=== PATIENT | male | born 1925 | race Caucasian/White ===

== ENCOUNTER → 2016-09-30 | Outpatient (CLI) | payer MEDICARE ==
[~2016-09-30] MED LIST: APIX2.5T PO; ASP81TEC PO; CARB1TAB6 PO; CEFU500T34 PO
--- NOTE | 2016-09-30 19:07 | Diagnostic Imaging Report ---
Three views of the thoracic spine. INDICATION: Chronic back pain. FINDINGS: The alignment of the thoracic spine is satisfactory. The vertebral body heights are preserved. Disc evaluation demonstrates multilevel mild anterior osteophytes and sclerotic changes. The paraspinal soft tissues appear grossly unremarkable with the pacemaker with two leads seen. IMPRESSION: Mild degenerative changes. Dictated by: Dictated on workstation # [id number]
--- NOTE | 2016-09-30 19:07 | Diagnostic Imaging Report ---
Exam: 3 views of the lumbar spine. Indication: Chronic pain. Findings: There is grade 1 spondylolisthesis of L5 over S1, similar to the November 2014 exam. The vertebral body heights appear preserved. There is significant disc height loss at L4/5 and L5/S1 discs with vacuum phenomenon and there are multilevel anterior osteophytes in the lumbar spine. No significant posterior osteophytes are evident. There is minimal right convexity curvature which could be positional or related to scoliosis. The SI joints appear unremarkable. Atherosclerotic calcifications of the abdominal aorta are seen. Impression: Grade 1 spondylolisthesis of L5 over S1. Prominent degenerative disc changes in the lower lumbar spine. Dictated by: Dictated on workstation # [id number]
== END ==
LOC: RAD 14:38
PROVIDERS: ATTEND Family Medicine
DX: M54.5 Low back pain (principal); M54.6 Pain in thoracic spine
CPT/HCPCS: 72072; 72100

== ENCOUNTER 2017-04-18 14:09 | Observation (INO) | payer MEDICARE ==
[~2017-04-18] VITALS: Ht 182.9 cm; Wt 81.6 kg
[2017-04-18] MEDS ORDERED: NS IV 500 ML 500 ML ONE (14:32)
[2017-04-18] MEDS ORDERED: NS IV 500 ML 500 ML IV ONE (14:36)
--- NOTE | 2017-04-18 14:36 | ED Neurological Problem ---
General Stated Complaint: L SIDE WEAKNESS Source: patient, family (daughter), EMS, spouse Exam Limitations: no limitations History of Present Illness Time seen by provider: 14:30 Initial Comments Patient present to ER by EMS after the last 3-4 weeks she's had progressively increasing decline in his ability to stand and walk. He has a history of parkinsonism as well as urinary hesitancy. He is not having any fevers chills or malaise. His weakness is in both legs and is having difficulty with help standing up to get on the commode so is been using a urinal. He says he has a difficult time initiating urinary stream and has to go to the bathroom about once an hour. He is seen by Dr. Infante. He has no rash fevers or chills or malaise. He called his doctor and was told to come to the ER for immediate evaluation. He had a bowel movement this morning and is typically constipated. Allergies and Home Medications Allergies Coded Allergies: No Known Drug Allergies (Verified , 10/22/09) Home Medications Apixaban 2.5 Mg Tablet, 2.5 MG PO BID, #60 Prescribed by: IGGY VALLEJO on 11/03/13 0917 Carbidopa/Levodopa 1 Each Tablet.er, 1 TAB PO QID, #360 (Reported) Finasteride 5 Mg Tablet, 5 MG PO DAILY, #90 (Reported) Rivastigmine 1 Each Patch.td24, 9.5 TD DAILY, #30 (Reported) Tamsulosin HCl 0.4 Mg Cap.er.24h, 0.4 MG PO DAILY, #90 (Reported) Trospium Chloride 20 Mg Tablet, 20 MG PO BID, #120 (Reported) [ergocalciferol] , 1 TAB PO WEEK, (Reported) Constitutional: see HPI, No chills, No diaphoresis, No fever, malaise, weakness Eyes: Denies Blindness, Denies Decreased Acuity Ears, Nose, Mouth, Throat: denies ear pain, denies nose discharge Respiratory: cough, No short of breath, No wheezing Cardiovascular: No chest pain, No palpitations, No syncope Gastrointestinal: No abdominal pain, No constipation, No diarrhea, No loss of appetite, No nausea Genitourinary: No discharge, No dysuria, frequency, hesitancy Musculoskeletal: No back pain, No joint pain Skin: No pruritus, No rash Psychiatric/Neurological: Denies Cognitive Dysfunction, Denies Headache, Denies Numbness Past Mfgyhds-Lgsrrs-Kzaoxd Hx Immunizations Up To Date Date of Pneumonia Vaccine: May 27, 2012 Date of Influenza Vaccine: Jun 30, 2013 Surgeries HX Surgeries: Yes Surgeries: Appendectomy, Eye Surgery, Pacemaker Respiratory Hx Respiratory Disorders: No Cardiovascular Hx Cardiac Disorders: Yes (Pacemaker) Cardiac Disorders: Syncope Neurological Hx Neurological Disorders: Yes (SYNCOPE) Neurological Disorders: Parkinson's Disease Reproductive System Hx Reproductive Disorders: No Genitourinary Hx Genitourinary Disorders: No Gastrointestinal Hx Gastrointestinal Disorders: No Musculoskeletal Hx Musculoskeletal Disorders: No Endocrine Hx Endocrine Disorders: No HEENT HX ENT Disorders: No Cancer Hx Cancer: No Psychosocial Hx Psychiatric Problems: No Blood Transfusions Hx Blood Disorders: No Family Medical History Significant Family History: Heart Disease, Hypertension Family Medial History: Cancer AUNT (MATERNAL) AUNT (MATERNAL) GRANDMOTHER (PATERNAL) Family history: Arthritis 03 FATHER 03 MOTHER Family history: Breast disease AUNT (MATERNAL) AUNT (MATERNAL) Family history: Cardiovascular disease GRANDFATHER (MATERNAL) Family history: Diabetes mellitus 03 MOTHER Family history: Hypertension GRANDFATHER (MATERNAL) Hearing loss 03 FATHER 03 MOTHER Heart disease GRANDFATHER (MATERNAL) Stroke GRANDMOTHER (MATERNAL) Physical Exam Vital Signs Capillary Refill : General Appearance: WD/WN, no apparent distress HEENT: PERRL/EOMI, normal ENT inspection, TMs normal, pharynx normal Neck: non-tender, normal inspection Respiratory: chest non-tender, lungs clear Cardiovascular: normal peripheral pulses, regular rate, rhythm Peripheral Pulses: 1+ Dorsalis Pedis (R) (dopplerable), 1+ Left Dors-Pedis (L) (dopplerable), 3+ Radial Pulses (R), 3+ Radial Pulses (L) Gastrointestinal: normal bowel sounds, non tender, soft Back: normal inspection, no CVA tenderness Extremities: no pedal edema, normal capillary refill, other (mild bluish discoloration to the piper on the right side) Neurologic/Psychiatric: cashier host/hostess II-XII nml as tested, no motor/sensory deficits, alert, normal mood/affect, oriented x 3 Motor/Sensory: weak motor strength RLE, weak motor strength LLE Skin: normal color, warm/dry Progress/Results/Core Measures Results/Orders Lab Results Laboratory Tests Test 04/18/17 14:32 04/18/17 15:45 Range/Units White Blood Count 7.0 4.3-11.0 10^3/uL Red Blood Count 3.92 L 4.35-5.85 10^6/uL Hemoglobin 12.3 L 13.3-17.7 G/DL Hematocrit 37 L 40-54 % Mean Corpuscular Volume 95 80-99 FL Mean Corpuscular Hemoglobin 31 25-34 PG Mean Corpuscular Hemoglobin Concent 33 32-36 G/DL Red Cell Distribution Width 13.1 10.0-14.5 % Platelet Count 179 130-400 10^3/uL Mean Platelet Volume 9.2 7.4-10.4 FL Neutrophils (%) (Auto) 65 42-75 % Lymphocytes (%) (Auto) 19 12-44 % Monocytes (%) (Auto) 12 0-12 % Eosinophils (%) (Auto) 4 0-10 % Basophils (%) (Auto) 0 0-10 % Neutrophils # (Auto) 4.5 1.8-7.8 X 10^3 Lymphocytes # (Auto) 1.4 1.0-4.0 X 10^3 Monocytes # (Auto) 0.8 0.0-1.0 X 10^3 Eosinophils # (Auto) 0.3 0.0-0.3 10^3/uL Basophils # (Auto) 0.0 0.0-0.1 10^3/uL Sodium Level 138 135-145 MMOL/L Potassium Level 4.6 3.6-5.0 MMOL/L Chloride Level 103 98-107 MMOL/L Carbon Dioxide Level 30 21-32 MMOL/L Anion Gap 5 5-14 MMOL/L Blood Urea Nitrogen 24 H 7-18 MG/DL Creatinine 1.63 H 0.60-1.30 MG/DL Estimat Glomerular Filtration Rate 40 BUN/Creatinine Ratio 15 Glucose Level 110 H 70-105 MG/DL Calcium Level 9.0 8.5-10.1 MG/DL Magnesium Level 2.2 1.8-2.4 MG/DL Total Bilirubin 0.4 0.1-1.0 MG/DL Aspartate Amino Transf (AST/SGOT) 15 5-34 U/L Alanine Aminotransferase (ALT/SGPT) < 6 0-55 U/L Alkaline Phosphatase 77 40-136 U/L Troponin I < 0.30 <0.30 NG/ML C-Reactive Protein High Sensitivity 0.05 0.00-0.50 MG/DL Total Protein 7.1 6.4-8.2 GM/DL Albumin 3.9 3.2-4.5 GM/DL Thyroid Stimulating Hormone (TSH) 1.32 0.35-4.94 UIU/ML Urine Color YELLOW Urine Clarity CLEAR Urine pH 7 5-9 Urine Specific Vale 1.010 L 1.016-1.022 Urine Protein NEGATIVE NEGATIVE Urine Glucose (UA) NEGATIVE NEGATIVE Urine Ketones NEGATIVE NEGATIVE Urine Nitrite NEGATIVE NEGATIVE Urine Bilirubin NEGATIVE NEGATIVE Urine Urobilinogen NORMAL NORMAL MG/DL Urine Leukocyte Esterase NEGATIVE NEGATIVE Urine RBC (Auto) NEGATIVE NEGATIVE Urine RBC RARE /HPF Urine WBC RARE /HPF Urine Crystals NONE /LPF Urine Bacteria NEGATIVE /HPF Urine Casts NONE /LPF Urine Mucus NEGATIVE /LPF Urine Culture Indicated NO My Orders Orders - KIM MCKENZIE Ct Head Wo (04/18/17 14:36) Saline Lock/Iv-Start (04/18/17 14:36) Cbc With Automated Diff (04/18/17 14:36) Comprehensive Metabolic Panel (04/18/17 14:36) Hs C Reactive Protein (04/18/17 14:36) Magnesium (04/18/17 14:36) Thyroid Stimulating Hormone (04/18/17 14:36) Troponin I (04/18/17 14:36) Ua Culture If Indicated (04/18/17 14:36) Chest 1 View, Ap/Pa Only (04/18/17 14:36) Ns Iv 500 Ml (Sodium Chloride 0.9%) (04/18/17 14:36) Ns Iv 500 Ml (Sodium Chloride 0.9%) (04/18/17 14:32) Medications Given in ED Current Medications Medications Dose Ordered Sig/Antonio Route Start Time Stop Time Status Last Admin Dose Admin Sodium Chloride 500 ml @ 0 mls/hr Q0M ONCE IV 04/18/17 14:36 04/18/17 14:39 DC 04/18/17 14:46 500 MLS/HR Progress Note : Time: 15:58 Progress Note Progressive worsening symmetric bilateral lower extremity weakness. Patient no longer able to walk or stand on his own. We'll look for infectious reason TSH and get a CT scan of the head thing about normal pressure hydrocephalus or other problems. Nothing to explain it on the lab, chest x-ray or CT at this time. We'll place a Rivas catheter to get urine since he is unable to produce on his own. Diagnostic Imaging Diagonstic Imaging: Xray Plain Films/CT/US/NM/MRI: chest Comments VIA [facility]. [place], [place] NAME: MATILDA MCRAE [facility] REC#: [id number] PT STATUS: REG ER : 1925 PHYSICIAN: KIM MCKENZIE MD ADMIT DATE: 04/18/17/ER Draft Date of Exam:04/18/17 CHEST 1 VIEW, AP/PA ONLY INDICATION: Left-sided weakness. COMPARISON: 11/02/2013. FINDINGS: Portable chest shows lungs to be free of infiltrate. Heart is not enlarged. Pacemaker is present unchanged with generator over the left chest. There is no evidence of pulmonary edema. No pneumothorax or pleural effusion. IMPRESSION: Stable portable chest with pacemaker present. Dictated on workstation # [id number] Dict: 04/18/17 1517 Trans: 04/18/17 1525 [facility] [id number] Interpreted by: PRISCILLA SANTIZO MD Electronically signed by: Reviewed: Reviewed by Me Diagonstic Imaging: CT Plain Films/CT/US/NM/MRI: head Comments [facility] [employer] [facility]. [place], [place] NAME: MATILDA MCRAE [facility] REC#: [id number] PT STATUS: REG ER : 1925 PHYSICIAN: KIM MCKENZIE MD ADMIT DATE: 04/18/17/ER Draft Date of Exam:04/18/17 CT HEAD WO PROCEDURE: CT head without contrast. TECHNIQUE: Multiple contiguous axial images were obtained through the brain without the use of intravenous contrast. INDICATION: Left-sided weakness. Comparison with 03/20/2015. FINDINGS: There is diffuse cortical atrophy. The ventricles are slightly prominent likely secondary to atrophic changes. Periventricular white matter disease present bilaterally in a symmetrical fashion. No evidence of intracranial hemorrhage. No focal edema or mass effect. No extra-axial fluid collections. The basal ganglia appear normal. Basal cisterns are clear. CP angles are clear. Orbital contents are symmetrical. IMPRESSION: 1. Progressive atrophy and white matter changes likely consistent with chronic small vessel disease which has progressed since previous exam. No acute abnormalities demonstrated. Dictated on workstation # [id number] Dict: 04/18/17 1518 Trans: 04/18/17 1523 [facility] [id number] Interpreted by: PRISCILLA SANTIZO MD Electronically signed by: Reviewed: Reviewed by Me Departure Communication Time/Spoke to Admitting Phy: 16:[address] Uriah Kinney discussed the case and have the patient has had difficulty dissipating and home health PT as well as inpatient PT in the past. Feels it be best to put the patient on observation for his decline he'll do some further workup we reviewed the labs and imaging. Dr. Kinney will see the patient tomorrow morning. Okay to initiate a rehabilitation evaluation. Impression Impression: Primary Impression: Weakness Additional Impressions: Debility Parkinsons Disposition: ADMITTED INPATIENT (obs) Condition: Stable Decision to Admit Reason: Admit from ER (General) Decision to Admit/Date: Apr 18, 2017 Time/Decision to Admit Time: 16:45 Departure-Patient Inst. Referrals: VINCENT WHITE DO (PCP/Family) Primary Care Physician Copy Copies To 1: VINCNET WHITE TITUS J Apr 18, 2017 14:36
[2017-04-18 14:44] LABS: BASOPHILS % (AUTO) 0 % (0-10); EOSINOPHILS # (AUTO) 0.3 10^3/uL (0.0-0.3); EOSINOPHILS % (AUTO) 4 % (0-10); LYMPHOCYTES # (AUTO) 1.4 X 10^3 (1.0-4.0); LYMPHOCYTES % (AUTO) 19 % (12-44); MEAN CORPUSCULAR HEMOGLOBIN 31 PG (25-34); MEAN CORPUSCULAR HGB CONC 33 G/DL (32-36); MEAN CORPUSCULAR VOLUME 95 FL (80-99); MEAN PLATELET VOLUME 9.2 FL (7.4-10.4); MONOCYTES # (AUTO) 0.8 X 10^3 (0.0-1.0); MONOCYTES % (AUTO) 12 % (0-12); NEUTROPHILS # (AUTO) 4.5 X 10^3 (1.8-7.8); NEUTROPHILS % (AUTO) 65 % (42-75); PLATELET COUNT 179 10^3/uL (130-400); RED BLOOD COUNT 3.92 10^6/uL (4.35-5.85); RED CELL DISTRIBUTION WIDTH 13.1 % (10.0-14.5)
[2017-04-18 15:03] LABS: ALANINE AMINOTRANSFERASE < 6 U/L (0-55); ALBUMIN 3.9 GM/DL (3.2-4.5); ANION GAP 5 MMOL/L (5-14); ASPARTATE AMINO TRANSFERASE 15 U/L (5-34); BILIRUBIN,TOTAL 0.4 MG/DL (0.1-1.0); BLOOD UREA NITROGEN 24 MG/DL (7-18); BUN/CREATININE RATIO 15; CARBON DIOXIDE 30 MMOL/L (21-32); CHLORIDE 103 MMOL/L (98-107); CREATININE SERUM 1.63 MG/DL (0.60-1.30); GFR ESTIMATED 40; GLUCOSE 110 MG/DL (70-105); MAGNESIUM 2.2 MG/DL (1.8-2.4); POTASSIUM 4.6 MMOL/L (3.6-5.0); SODIUM 138 MMOL/L (135-145); TOTAL PROTEIN 7.1 GM/DL (6.4-8.2); hs C REACTIVE PROTEIN 0.05 MG/DL (0.00-0.50)
[2017-04-18] MEDS ORDERED: CARB1TAB41 PO ×2 (15:06)
[2017-04-18] MEDS ORDERED: RIVA1PAT12 TD ×2 (15:06)
[2017-04-18] MEDS ORDERED: ergocalciferol PO (15:06)
[2017-04-18] MEDS ORDERED: TROS20TA3 PO ×2 (15:06)
[2017-04-18] MEDS ORDERED: TAMS0.4C2 PO ×2 (15:06)
[2017-04-18] MEDS ORDERED: FINA5TAB6 PO ×2 (15:06)
[2017-04-18 15:23] LABS: THYROID STIMULATING HORMONE 1.32 UIU/ML (0.35-4.94); TROPONIN I < 0.30 NG/ML (<0.30)
--- NOTE | 2017-04-18 15:23 | Diagnostic Imaging Report ---
PROCEDURE: CT head without contrast. TECHNIQUE: Multiple contiguous axial images were obtained through the brain without the use of intravenous contrast. INDICATION: Left-sided weakness. Comparison with 03/20/2015. FINDINGS: There is diffuse cortical atrophy. The ventricles are slightly prominent likely secondary to atrophic changes. Periventricular white matter disease present bilaterally in a symmetrical fashion. No evidence of intracranial hemorrhage. No focal edema or mass effect. No extra-axial fluid collections. The basal ganglia appear normal. Basal cisterns are clear. CP angles are clear. Orbital contents are symmetrical. IMPRESSION: 1. Progressive atrophy and white matter changes likely consistent with chronic small vessel disease which has progressed since previous exam. No acute abnormalities demonstrated. Dictated by: Dictated on workstation # [id number]
--- NOTE | 2017-04-18 15:25 | Diagnostic Imaging Report ---
INDICATION: Left-sided weakness. COMPARISON: 11/02/2013. FINDINGS: Portable chest shows lungs to be free of infiltrate. Heart is not enlarged. Pacemaker is present unchanged with generator over the left chest. There is no evidence of pulmonary edema. No pneumothorax or pleural effusion. IMPRESSION: Stable portable chest with pacemaker present. Dictated by: Dictated on workstation # [id number]
[2017-04-18 15:51] LABS: BILIRUBIN,URINE NEGATIVE (NEGATIVE); KETONES,URINE NEGATIVE (NEGATIVE); LEUKOCYTE ESTERASE ,URINE NEGATIVE (NEGATIVE); NITRITE,URINE NEGATIVE (NEGATIVE); PH,URINE 7 (5-9); PROTEIN,URINE NEGATIVE (NEGATIVE); UROBILINOGEN,URINE NORMAL (NORMAL)
[2017-04-18 16:01] LABS: WBC,URINE RARE /HPF
[2017-04-18 17:20] VITALS: BP 174/94
[2017-04-18] MEDS ORDERED: ACETAMINOPHEN 325 MG TABLET/CAPLET (TYLENOL) PO PRN (18:00)
[2017-04-18] MEDS ORDERED: CATHETER FLUSH 10 ML SYR IV PRN (18:00)
[2017-04-18] MEDS ORDERED: ONDANSETRON 4 MG/2 ML (SDV) Z0FRAN IV PRN (18:00)
[2017-04-18] MEDS: APIXABAN 2.5 MG (ELIQUIS) TABLET PO SCH (20:16)
[2017-04-18] MEDS: TROSPIUM 20 MG (SANCTURA) TAB PO SCH (20:17)
[2017-04-18] MEDS: ALFUZOSIN HCL 10 MG TAB (UROXATRAL) PO SCH (20:17)
[2017-04-18] MEDS: SINEMET CR 50/200 (CARBIDOPA/LEVODOPA SA) TAB PO SCH (20:17)
[2017-04-18] MEDS: CATHETER FLUSH 10 ML SYR IV SCH (21:44)
[2017-04-18] MEDS: MELATONIN 3 MG TABLET PO SCH (21:51)
[2017-04-19 00:05] VITALS: BP 147/74
[2017-04-19 03:45] VITALS: BP 137/69
[2017-04-19 06:12] LABS: BASOPHILS % (AUTO) 0 % (0-10); EOSINOPHILS # (AUTO) 0.3 10^3/uL (0.0-0.3); EOSINOPHILS % (AUTO) 4 % (0-10); LYMPHOCYTES # (AUTO) 1.6 X 10^3 (1.0-4.0); LYMPHOCYTES % (AUTO) 22 % (12-44); MEAN CORPUSCULAR HEMOGLOBIN 31 PG (25-34); MEAN CORPUSCULAR HGB CONC 33 G/DL (32-36); MEAN CORPUSCULAR VOLUME 94 FL (80-99); MEAN PLATELET VOLUME 9.4 FL (7.4-10.4); MONOCYTES # (AUTO) 0.6 X 10^3 (0.0-1.0); MONOCYTES % (AUTO) 9 % (0-12); NEUTROPHILS # (AUTO) 4.6 X 10^3 (1.8-7.8); NEUTROPHILS % (AUTO) 65 % (42-75); PLATELET COUNT 167 10^3/uL (130-400); RED BLOOD COUNT 3.75 10^6/uL (4.35-5.85); WHITE BLOOD COUNT 7.2 10^3/uL (4.3-11.0)
[2017-04-19 06:35] LABS: ALANINE AMINOTRANSFERASE < 6 U/L (0-55); ALBUMIN 3.5 GM/DL (3.2-4.5); ANION GAP 11 MMOL/L (5-14); ASPARTATE AMINO TRANSFERASE 17 U/L (5-34); BILIRUBIN,TOTAL 0.5 MG/DL (0.1-1.0); BLOOD UREA NITROGEN 23 MG/DL (7-18); BUN/CREATININE RATIO 21; CALCIUM 8.8 MG/DL (8.5-10.1); CARBON DIOXIDE 21 MMOL/L (21-32); CHLORIDE 105 MMOL/L (98-107); CREATININE SERUM 1.12 MG/DL (0.60-1.30); GFR ESTIMATED > 60; GLUCOSE 97 MG/DL (70-105); POTASSIUM 4.3 MMOL/L (3.6-5.0); SODIUM 137 MMOL/L (135-145); TOTAL PROTEIN 6.2 GM/DL (6.4-8.2)
[2017-04-19] MEDS: CATHETER FLUSH 10 ML SYR IV SCH ×3 (06:50→20:58)
[2017-04-19] MEDS: SINEMET CR 50/200 (CARBIDOPA/LEVODOPA SA) TAB PO SCH ×4 (06:51→20:53)
[2017-04-19] MEDS: TROSPIUM 20 MG (SANCTURA) TAB PO SCH ×2 (06:51→16:58)
[2017-04-19] MEDS: FINASTERIDE (PROSCAR) 5 MG TAB PO SCH (08:25)
[2017-04-19] MEDS: RIVASTIGMINE 9.5 MG PATCH (EXELON) NON-FORMULARY TD SCH (08:25)
[2017-04-19] MEDS: APIXABAN 2.5 MG (ELIQUIS) TABLET PO SCH ×2 (08:25→20:53)
[2017-04-19] MEDS: RIVASTIGMINE PATCH REMOVAL TP SCH (08:25)
[2017-04-19 08:40] VITALS: BP 119/79
[2017-04-19 12:00] VITALS: BP 108/58
[2017-04-19] MEDS ORDERED: NYSTATIN CREAM (MYCOSTATIN) 30 GM TUBE TP SCH (13:00)
--- NOTE | 2017-04-19 15:18 | History & Physical ---
History of Present Illness History of Present Illness Reason for visit/HPI 89 yo M with Parkinson's disease admitted for progressive weakness and the inability to walk/stand up was reason for bringing him to the ER. Pt admitted on observation for further evaluation. Pt refused catheter on admission due to having one before and he does not want to go through that again. Duration of progressive weakness 2-3 weeks. Pt follows with Dr. Patterson and is on carbi/ levodopa for his Parkinson's. reports doubling it and he either hallucinates or is sedated. Pt has strongly stated he does not want to go to a longterm and his says he has made her promise to not send him. He does not have much more complaints- Family is concerned about a stroke. Date of Admission Apr 18, 2017 at 16:48 Date Seen by Provider: Apr 19, 2017 Time Seen by Provider: 13:00 I consulted on this patient on 04/19/17 15:13 Attending Physician Uriah Sims MD Admitting Physician Fareed Nj DO Consult Allergies and Home Medications Allergies Coded Allergies: No Known Drug Allergies (Verified , 10/22/09) Home Medications Apixaban 2.5 Mg Tablet, 2.5 MG PO BID, #60 Prescribed by: IGGY VALLEJO on 11/03/13 0917 Carbidopa/Levodopa 1 Each Tablet.er, 1 TAB PO QID, #360 (Reported) Finasteride 5 Mg Tablet, 5 MG PO DAILY, #90 (Reported) Rivastigmine 1 Each Patch.td24, 9.5 TD DAILY, #30 (Reported) Tamsulosin HCl 0.4 Mg Cap.er.24h, 0.4 MG PO DAILY, #90 (Reported) Trospium Chloride 20 Mg Tablet, 20 MG PO BID, #120 (Reported) [ergocalciferol] , 1 TAB PO WEEK, (Reported) TAKES WEEKLY Q FRIDAY Past Wfndxaf-Grwszg-Quuhvj Hx Patient Social History Alcohol Use: Denies Use Recreational Drug Use: No Smoking Status: Never a Smoker Physical Abuse Screen: No Sexual Abuse: No Recent Foreign Travel: No Contact w/other who traveled: No Recent Hopitalizations: Yes Recent Infectious Disease Expo: No Immunizations Up To Date Date of Pneumonia Vaccine: May 27, 2012 Date of Influenza Vaccine: Jun 30, 2013 Surgeries HX Surgeries: Yes Surgeries: Appendectomy, Eye Surgery, Pacemaker Respiratory Hx Respiratory Disorders: No Cardiovascular Hx Cardiovascular Disorders: Yes (Pacemaker) Cardiac Disorders: Syncope Neurological Hx Neurological Disorders: Yes (SYNCOPE) Neurological Disorders: Parkinson's Disease Reproductive System Hx Reproductive Disorders: No Genitourinary Hx Genitourinary Disorders: No Gastrointestinal Hx Gastrointestinal Disorders: No Musculoskeletal Hx Musculoskeletal Disorders: No Endocrine Hx Endocrine Disorders: No HEENT HX ENT Disorders: No Cancer Hx Cancer: No Psychosocial Hx Psychiatric Problems: No Blood Transfusions Hx Blood Disorders: No Family Medical History Significant Family History: Heart Disease, Hypertension Family Hx: Cancer AUNT (MATERNAL) AUNT (MATERNAL) GRANDMOTHER (PATERNAL) Family history: Arthritis 03 FATHER 03 MOTHER Family history: Breast disease AUNT (MATERNAL) AUNT (MATERNAL) Family history: Cardiovascular disease GRANDFATHER (MATERNAL) Family history: Diabetes mellitus 03 MOTHER Family history: Hypertension GRANDFATHER (MATERNAL) Hearing loss 03 FATHER 03 MOTHER Heart disease GRANDFATHER (MATERNAL) Stroke GRANDMOTHER (MATERNAL) Review of Systems Review of Systems General: No Chills, No Night Sweats HEENT: No Head Aches, No Visual Changes Pulmonary: No Dyspnea, No Cough Cardiovascular: No: Chest Pain, Orthopnea, Palpitations Gastrointestinal: No: Abdominal Pain, Nausea, Vomiting Genitourinary: No Dysuria, Frequency, Incontinence Musculoskeletal: No: neck pain, shoulder pain Neurological: Incoordination, Weakness, No: Confusion, Numbness, Seizures Physical Exam Vital Signs Vital Sign - Last 12Hours 04/18/17 04/18/17 14:10 17:05 Temp 97.9 Pulse 75 Resp 18 B/P (MAP) 135/79 Pulse Ox 96 O2 Delivery Room Air Capillary Refill : Less Than 3 Seconds General Appearance: No Apparent Distress, WD/WN HEENT: PERRL/EOMI Neck: Non Tender, Supple Respiratory: Chest Non Tender, Lungs Clear, Normal Breath Sounds, No Accessory Muscle Use, No Respiratory Distress Cardiovascular: Regular Rate, Rhythm, No Edema Gastrointestinal: Non Tender, Soft Rectal: Deferred Back: No CVA Tenderness, No Vertebral Tenderness Extremity: Normal Range of Motion, Non Tender, No Calf Tenderness Neurologic/Psychiatric: Alert, Oriented x3, Motor Weakness (4/5) Skin: Normal Color, Warm/Dry Assessment/Plan Assessment/Plan Assessment/Plan 89 yo M Weakness- progressing, inability to stand/walk- CT head negative for acute stroke- consider MRI head if stroke continues to be a concern. Appears pt's weakness is global. Mentation is stable. Parkinson Disease- on carb/levo- follows with Dr. Patterson. BPH- continue home meds. Acute CKD III- resolved with IVF Dispo: order placed for rehab evaluation- I do not think pt will able to tolerate 3 hours of therapy- Order placed for PT eval- possible best option is HH PT/OT as pt does not want to go to a facility. Pt does have 24hr personal care but 1 person is not enough to do everything. Problems: Clinical Quality Measures DVT/VTE Risk/Contraindication: Risk Factor Score Per Nursin RFS Level Per Nursing on Admit: 4+=Very High URIAH SIMS MD Apr 19, 2017 3:18 pm
[2017-04-19 16:39] VITALS: BP 137/77
[2017-04-19 20:07] VITALS: BP 159/84
[2017-04-19] MEDS: MELATONIN 3 MG TABLET PO SCH (20:53)
[2017-04-19] MEDS: ALFUZOSIN HCL 10 MG TAB (UROXATRAL) PO SCH (20:53)
[2017-04-20] VITALS: BP 129/77
[2017-04-20] MEDS: SINEMET CR 50/200 (CARBIDOPA/LEVODOPA SA) TAB PO SCH ×4 (05:55→20:07)
[2017-04-20] MEDS: TROSPIUM 20 MG (SANCTURA) TAB PO SCH ×2 (05:55→16:46)
[2017-04-20] MEDS: CATHETER FLUSH 10 ML SYR IV SCH ×3 (05:55→22:37)
[2017-04-20] MEDS: FINASTERIDE (PROSCAR) 5 MG TAB PO SCH (07:59)
[2017-04-20] MEDS: APIXABAN 2.5 MG (ELIQUIS) TABLET PO SCH ×2 (07:59→20:07)
[2017-04-20] MEDS: RIVASTIGMINE PATCH REMOVAL TP SCH (07:59)
[2017-04-20] MEDS: RIVASTIGMINE 9.5 MG PATCH (EXELON) NON-FORMULARY TD SCH (07:59)
[2017-04-20 08:00] VITALS: BP 179/78
--- NOTE | 2017-04-20 11:15 | Progress Note (SOAP) ---
Subjective Subjective Date Seen by Provider: Apr 20, 2017 Time Seen by Provider: 11:12 89 yo M - observation for weakness- no overnight events- this AM though pt all of a sudden was seen walking down the halls with his walker. He was escorted back to his room by nurse and myself. Pt said he just stood up and started walking. Review of Systems General: No Chills, No Night Sweats HEENT: No Head Aches, No Visual Changes Pulmonary: No Dyspnea, No Cough Cardiovascular: No: Chest Pain, Orthopnea, Palpitations Gastrointestinal: No: Abdominal Pain, Nausea, Vomiting Genitourinary: No Dysuria, Frequency, Incontinence Musculoskeletal: No: neck pain, shoulder pain Neurological: Incoordination, Weakness, No: Confusion, Numbness, Seizures Objective Exam Vital Signs Vital Signs Date Time Temp Pulse Resp B/P (MAP) Pulse Ox O2 Delivery O2 Flow Rate FiO2 04/20/17 08:00 98.2 75 18 179/78 96 Room Air 04/20/17 00:00 97.5 76 16 129/77 95 Room Air 04/19/17 21:00 Room Air 04/19/17 20:07 97.5 75 20 159/84 97 Room Air 04/19/17 16:39 96.8 77 20 137/77 96 Room Air 04/19/17 12:00 96.6 78 20 108/58 94 Room Air I & O 04/20/17 07:00 Intake Total 1510 ml Output Total 400 ml Balance 1110 ml General Appearance: No Apparent Distress, WD/WN HEENT: PERRL/EOMI Neck: Non Tender, Supple Respiratory: Chest Non Tender, Lungs Clear, Normal Breath Sounds, No Accessory Muscle Use, No Respiratory Distress Cardiovascular: Regular Rate, Rhythm, No Edema Gastrointestinal: Non Tender, Soft Rectal: Deferred Back: No CVA Tenderness, No Vertebral Tenderness Extremity: Normal Range of Motion, Non Tender, No Calf Tenderness Neurologic/Psychiatric: Alert, Oriented x3, Motor Weakness (4/5) Skin: Normal Color, Warm/Dry Assessment/Plan Assessment/Plan Assessment/Plan 89 yo M Weakness- progressing, inability to stand/walk- CT head negative for acute stroke- consider MRI head if stroke continues to be a concern. Appears pt's weakness is global likely related to his Parkinson. Mentation is stable. -Pt's weakness was resolved this AM- as he took off walking down the hallway with his wheeled walker. Parkinson Disease- on carb/levo- follows with Dr. Patterson. BPH- continue home meds. CKD III- stable Dispo: order placed for rehab evaluation- I do not think pt will be able to tolerate 3 hours of therapy- Order placed for PT eval- possible best option is HH PT/OT as pt does not want to go to a facility. Pt does have 24hr personal security specialist(s) Given pt stood up and started walking this AM- could go home today? Family not at bedside to weigh in. Problems: Clinical Quality Measures DVT/VTE Risk/Contraindication: Risk Factor Score Per Nursin RFS Level Per Nursing on Admit: 4+=Very High JOSEPHINE SIMS MD Apr 20, 2017 11:15
[2017-04-20 16:00] VITALS: BP 106/53
[2017-04-20] MEDS: ALFUZOSIN HCL 10 MG TAB (UROXATRAL) PO SCH (16:46)
[2017-04-20] MEDS: MELATONIN 3 MG TABLET PO SCH (20:07)
[2017-04-21] VITALS: BP 169/80
[2017-04-21] MEDS: CATHETER FLUSH 10 ML SYR IV SCH (05:14)
[2017-04-21] MEDS: SINEMET CR 50/200 (CARBIDOPA/LEVODOPA SA) TAB PO SCH (06:00)
[2017-04-21] MEDS: TROSPIUM 20 MG (SANCTURA) TAB PO SCH (06:00)
--- NOTE | 2017-04-21 08:20 | Progress Note (SOAP) ---
Subjective Time Seen by Provider: 08:10 Subjective/Events-last exam patient and family would like to try rehabilitation. Consult with rehabilitation. Parkinson disease. Weakness. Renal insufficiency resolved. Dehydration Objective Exam Vital Signs Date Time Temp Pulse Resp B/P (MAP) Pulse Ox O2 Delivery O2 Flow Rate FiO2 04/21/17 00:00 98.7 110 22 169/80 95 Room Air 04/20/17 16:00 97.2 75 20 106/53 96 Room Air 04/20/17 09:00 Room Air I & O 04/21/17 07:00 Intake Total 1280 ml Output Total 200 ml Balance 1080 ml Capillary Refill : Less Than 3 Seconds General Appearance: No Apparent Distress, WD/WN Neck: Normal Inspection Respiratory: Chest Non Tender, Lungs Clear, Normal Breath Sounds, No Accessory Muscle Use, No Respiratory Distress Cardiovascular: Regular Rate, Rhythm, No Murmur Assessment/Plan Assessment/Plan Assess & Plan/Chief Complaint Parkinson disease. Weakness. Renal insufficiency resolved. Patient candidate for rehabilitation. Patient wants to go to rehabilitation. Consult with rehabilitation Clinical Quality Measures DVT/VTE Risk/Contraindication: Risk Factor Score Per Nursin RFS Level Per Nursing on Admit: 4+=Very High VINCENT WHITE DO Apr 21, 2017 08:20
[2017-04-21 08:30] VITALS: BP 146/70
[2017-04-21] MEDS: RIVASTIGMINE PATCH REMOVAL TP SCH (08:48)
[2017-04-21] MEDS: FINASTERIDE (PROSCAR) 5 MG TAB PO SCH (08:48)
[2017-04-21] MEDS ORDERED: APIXABAN 2.5 MG (ELIQUIS) TABLET PO SCH (09:34)
[2017-04-21] MEDS ORDERED: SINEMET CR 50/200 (CARBIDOPA/LEVODOPA SA) TAB PO SCH (09:36)
[2017-04-21] MEDS ORDERED: ERGO50006 PO ×2 (09:37)
[2017-04-21] MEDS ORDERED: MELA10TA2 PO ×2 (09:37)
[2017-04-21] MEDS ORDERED: MULT-35 PO ×2 (09:38)
[2017-04-21] MEDS ORDERED: RIVASTIGMINE 9.5 MG PATCH (EXELON) NON-FORMULARY TD SCH (09:41)
[2017-04-21] MEDS ORDERED: PATIENT MAY USE OWN MEDS, ALL MC SCH (09:45)
[2017-04-21 10:10] VITALS: BP 146/70
--- NOTE | 2017-04-21 10:34 | Physical Therapy Evaluation ---
PT Evaluation-General Medical Diagnosis Admission Date Apr 18, 2017 at 16:48 Medical Diagnosis: debility/weakness Onset Date: Apr 18, 2017 Therapy Diagnosis Therapy Diagnosis: generalized weakness/debility Height/Weight Height (Feet): 6 Height (Inches): 0.00 Weight (Pounds): 180 Weight (Ounces): 0.0 Precautions Precautions/Isolations: Fall Prevention, Standard Precautions Weight Bear Status Weight Bearing Restriction: Weight Bearing/Tolerated Location Restriction: LE Bilateral Referral Physician: Nirmal Reason for Referral: Evaluation/Treatment Medical History Pertinent Medical History: Parkinson's Additional Medical History pacemaker Current History 3-4 wk debility/weakness Reviewed History: Yes Social History Home: Single Level Current Living Status: Spouse Prior/Core FIM Prior Level of Function Functional [place] Measure 0=Not Assessed/NA 4=Minimal Assistance 1=Total Assistance 5=Supervision or Setup 2=Maximal Assistance 6=Modified [place] 3=Moderate Assistance 7=Complete [place] Bed Mobility: 5 Transfers (B,C,W/C) (FIM): 5 Gait: 5 4WW; spouse and family and 24/7 caregivers perform ADL's for patient due to Parkinson's PT Evaluation-Current Subjective Patient agrees to PT. Pain Numeric Pain Scale: 0-No Pain Location: No Pain Reported Objective Patient Orientation: Normal For Age Problem Solving: Fair ROM/Strength ROM Lower Extremities bilateral rigid due to Parkinson's and medication not issued prior Strenght Lower Extremities bilateral LE WNL Integumentary/Posture Integumentary refer to nursing notes Bowel Incontinence: No Bladder Incontinence: No Posture kyphotic/Parkinson's posture (NBOS) Neuromuscular (Tone, Coordination, Reflexes) rigid tone/diminished coordination (Parkinson's) Sensory Vision: Functional Hearing: Functional Sensation Right Lower Extremit: Intact Sensation Left Lower Extremity: Intact Transfers Functional [place] Measure 0=Not Assessed/NA 4=Minimal Assistance 1=Total Assistance 5=Supervision or Setup 2=Maximal Assistance 6=Modified [place] 3=Moderate Assistance 7=Complete [place] Transfers (B, C, W/C) (FIM): 4 Scootin Rollin Supine to/from Sit: 4 Sit to/from Stand: 4 slight retropulsion with sit to stand, however, medication had not been issued prior to PT. Gait Mode of Locomotion: Both Anticipated Mode of Locomotion: Both Gait (FIM): 4 Distance (FIM): 3=150 ft Distance: 250' Gait Level of Assist: 4 Gait Persons Needed: 1 Gait Assistive Device: Walker 4 Wheeled Comments/Gait Description CGA with gait belt for safety/ festinating gait due to Parkinson's/NBOS; very slow gait sequence with multiple stops due to "freezing" Balance Sitting Static: Fair Sitting Dynamic: Fair Standing Static: Fair Standing Dynamic: Fair Assessment/Needs 89 y.o. male, will benefit from skilled PT to address functional mobility. Patient currently requires time to complete all functional tasks due to Parkinson's and having not received his Parkinson's medication prior to this PT evaluation. PT will make further assessment after issued. Rehab Potential: Fair Post Rehab Potential-Barriers: Parkinson's PT Generator Technician Goals Custodial Goals PT Custodial Goals Time Frame: Apr 25, 2017 Transfers (B,C,W/C) (FIM): 5 Gait (FIM): 5 Gait distance (FIM): 3=150 ft Gait Level of Assist: 5 Gait Assistive Device: Walker 4 Wheeled PT Plan Problem List Problem List: Activity Tolerance, Safety, Balance, Gait, Transfer Treatment/Plan Treatment Plan: Continue Plan of Care Treatment Plan: Bed Mobility, Education, Functional Activity Sandi, Functional Strength, Gait, Safety, Therapeutic Exercise, Transfers Treatment Duration: Apr 25, 2017 Frequency: Twice Daily Estimated Hrs Per Day: .5 hour per day Patient and/or Family Agrees t: Yes Safety Risks/Education Patient Education: Gait Training, Transfer Techniques, Safety Issues Teaching Recipient: Patient, Family Teaching Methods: Discussion Response to Teaching: Verbalize Understanding Discharge Recommendations Therapy D/C Recommendations: Home w/ Family Support Time/GCodes Time In: 830 Time Out: 815 Total Billed Treatment Time: 45 Total Billed Treatment 1 visit EVModC 20 min GT x 2 25 min PT/OT Therapy GCodes Therapy Functional Limitation: Physical Therapy Test(s)/Tool used to determine: Level of Assistance Scale Functional Limitation-Current Charge Code: MOBCUR Modifier: CL Functional Limitation-Goal Charge Code: MOBGOAL Modifier: ANTHONY CLEMENTE PT Apr 21, 2017 10:34
[2017-04-21] MEDS ORDERED: MELATONIN 10 MG TAB PO SCH (21:00)
--- NOTE | 2017-04-24 07:33 | Clinic Account Progress/Dx ---
Clinic Account Progress/Dx DIAGNOSIS: Time Seen by Provider: 07:25 Diagnosis acute kidney failure. Weakness. Parkinson disease. Presence of cardiac pacemaker VINCENT WHITE DO Apr 24, 2017 07:33
== END 2017-04-21 09:59 | disposition home or self-care (01) ==
LOC: EDUNIT# 14:09 → ER 14:10 → 4TH 16:48 → UNDOADMOB 16:48 → 4TH 17:05 → UNDODISOB 04-21 10:45
PROVIDERS: ADMIT Family Medicine; ATTEND Family Medicine
DX: R53.1 Weakness (principal); R53.81 Other malaise; G20 Parkinson's disease; N40.1 Benign prostatic hyperplasia with lower urinary tract symptoms; N17.9 Acute kidney failure, unspecified; Z79.01 Long term (current) use of anticoagulants; Z79.899 Other long term (current) drug therapy; Z95.0 Presence of cardiac pacemaker
CPT/HCPCS: 36415; 70450; 71010; 80053; 81000; 83735; 84443; 84484; 85025; 86141; 96360; G0378

== ENCOUNTER → 2017-04-22 | Outpatient (CLI) | payer MEDICARE ==
[~2017-04-22] MED LIST changes: +CARB1TAB41 PO; +ERGO50006 PO; +FINA5TAB6 PO; +MELA10TA2 PO; +MULT-35 PO; +RIVA1PAT12 TD; +TAMS0.4C2 PO; +TROS20TA3 PO; +ergocalciferol PO
--- NOTE | 2017-04-22 16:30 | Diagnostic Imaging Report ---
EXAMINATION: Bilateral lower extremity duplex venous ultrasound. TECHNIQUE: DVT protocol. Multiple sonographic images with color Doppler and waveform interrogation were performed of the lower extremity veins, bilaterally, with compression and augmentation maneuvers. INDICATION: Bilateral leg edema. FINDINGS: The lower extremity veins from the common femoral veins to below the knee veins were examined with normal color-flow, compressibility and normal waveform demonstrated. The great saphenous vein bilaterally is patent. IMPRESSION: No evidence of DVT in either lower extremity. Dictated by: Dictated on workstation # [id number]
--- NOTE | 2017-04-22 17:03 | Diagnostic Imaging Report ---
Examination: Segmental lower extremity pressure assessment and ankle brachial index measurement. Post volume recording waveforms are also obtained in the lower extremities. Indication: Claudication. Findings: Systolic pressure in the right Upper extremity is 114, and the left Upper extremity is 114 mmHg. RIGHT Lower extremity systolic pressures are: In the mid thigh 136 , in the upper calf 149, and at the ankle 143 PT, and 139 DP. . LEFT Lower extremity systolic pressures are: In the mid thigh 142 , in the upper calf 132, and at the ankle 95 PT, and 104 DP. . SHASHA on the right is 1.2, and on the left is 0.9. Pulse volume recordings waveforms demonstrate mild to moderate dampening of the waveforms more on the left side. Impression: Findings suggestive of mild peripheral arterial disease in the left lower extremity. Dictated by: Dictated on workstation # [id number]
== END ==
LOC: RAD 15:20
PROVIDERS: ATTEND Internal Medicine Cardiovascular Disease
DX: I73.9 Peripheral vascular disease, unspecified (principal); R55 Syncope and collapse; M79.89 Other specified soft tissue disorders; Z95.0 Presence of cardiac pacemaker; Z86.79 Personal history of other diseases of the circulatory system
CPT/HCPCS: 93923; 93970

== ENCOUNTER 2017-06-17 08:15 | Emergency (ER) | payer MEDICARE ==
[~2017-06-17] VITALS: Ht 172.7 cm; Wt 73.9 kg
--- NOTE | 2017-06-17 08:44 | ED General ---
General Chief Complaint: Neurological Problems Stated Complaint: LOW BP Source of Information: Patient Exam Limitations: No Limitations History of Present Illness Time Seen by Provider: 08:23 Initial Comments Here by EMS with report of low blood pressure this morning. Apparently has woke up or had noted low blood pressure over the last few days in the mornings but does better after getting up. Does have advanced Parkinson's disease. Denies any significant problems otherwise. EMS noted that he did have an initial blood pressure of palpable systolic at 55. Repeat blood pressure was normal and the patient's mentation improved after EMS arrival. Here he is without complaints with normal blood pressure normal mentation and family agrees. Patient does report some difficulties with urination over the last 2 weeks reporting that he has the feeling of needing to go but not able to go. Timing/Duration: 2-3 Days Severity: Mild Associated Systoms: No Chest Pain, No Cough, No Fever/Chills, No Nausea/ Vomiting, No Shortness of Air, Weakness Allergies and Home Medications Allergies Coded Allergies: No Known Drug Allergies (Verified , 10/22/09) Home Medications Apixaban 2.5 Mg Tablet, 2.5 MG PO BID, #60 Prescribed by: IGGY VALLEJO on 11/03/13 0917 Carbidopa/Levodopa 1 Each Tablet.er, 1 TAB PO QID, (Reported) Ergocalciferol (Vitamin D2) 50,000 Unit Capsule, 50,000 UNIT PO Th, (Reported) Finasteride 5 Mg Tablet, 5 MG PO DAILY, (Reported) Melatonin 10 Mg Tablet, 10 MG PO HS, (Reported) Multivitamin 1 Each Tablet, 1 TAB PO 1730, (Reported) Rivastigmine 1 Each Patch.td24, 9.5 MG TD HS, (Reported) Tamsulosin HCl 0.4 Mg Cap.er.24h, 0.4 MG PO 1730, (Reported) Trospium Chloride 20 Mg Tablet, 20 MG PO BID, (Reported) Constitutional: see HPI, No chills, No fever EENTM: no symptoms reported Respiratory: cough, No short of breath Cardiovascular: no symptoms reported Gastrointestinal: No nausea, No vomiting, other (report of dark stool a few days ago but has cleared since.) Genitourinary: see HPI Musculoskeletal: no symptoms reported Skin: no symptoms reported Psychiatric/Neurological: See HPI, Tremors (Parkinson tremors), Weakness All Other Systems Reviewed Negative Unless Noted: Yes Past Vqgongg-Glwnps-Quztqu Hx Patient Social History Alcohol Use: Denies Use Recreational Drug Use: No Smoking Status: Never a Smoker Recent Hopitalizations: Yes Immunizations Up To Date Date of Pneumonia Vaccine: May 27, 2012 Date of Influenza Vaccine: Jun 30, 2013 Surgeries History of Surgeries: Yes (APPY, ) Surgeries: Appendectomy, Eye Surgery, Pacemaker Respiratory History of Respiratory Disorde: No Cardiovascular History of Cardiac Disorders: Yes (Pacemaker) Cardiac Disorders: Syncope Neurological History of Neurological Disord: Yes (SYNCOPE) Neurological Disorders: Parkinson's Disease Reproductive System Hx Reproductive Disorders: No Genitourinary History of Genitourinary Disor: Yes (HAVING PROBLEMS W/ RETENTION AND IS BEING TESTED FOR ) Gastrointestinal History of Gastrointestinal Di: No Musculoskeletal History of Musculoskeletal Dis: No Endocrine History of Endocrine Disorders: No Cancer History of Cancer: No Psychosocial History of Psychiatric Problem: No Blood Transfusions History of Blood Disorders: No Reviewed Nursing Assessment Reviewed/Agree w Nursing PMH: Yes Family Medical History Significant Family History: Heart Disease, Hypertension Family Medial History: Cancer AUNT (MATERNAL) AUNT (MATERNAL) GRANDMOTHER (PATERNAL) Family history: Arthritis 03 FATHER 03 MOTHER Family history: Breast disease AUNT (MATERNAL) AUNT (MATERNAL) Family history: Cardiovascular disease GRANDFATHER (MATERNAL) Family history: Diabetes mellitus 03 MOTHER Family history: Hypertension GRANDFATHER (MATERNAL) Hearing loss 03 FATHER 03 MOTHER Heart disease GRANDFATHER (MATERNAL) Stroke GRANDMOTHER (MATERNAL) Physical Exam Vital Signs Vital Sign - Last 12Hours 06/17/17 08:36 Temp 97.6 Pulse 76 Resp 18 B/P (MAP) 117/66 Pulse Ox 95 O2 Delivery Room Air Capillary Refill : General Appearance: No Apparent Distress, WD/WN HEENT: PERRL/EOMI, Pharynx Normal Neck: Non Tender, Supple Respiratory: No Accessory Muscle Use, Crackles (bilateral bases) Cardiovascular: Regular Rate, Rhythm, No Murmur Gastrointestinal: Non Tender, Soft Back: Normal Inspection, No CVA Tenderness, No Vertebral Tenderness Extremity: Normal Range of Motion, Non Tender Neurologic/Psychiatric: Alert, Oriented x3, Other (moderate bilateral upper extremity tremors) Skin: Normal Color, Warm/Dry Progress/Results/Core Measures Results/Orders Lab Results Laboratory Tests Test 06/17/17 08:27 06/17/17 10:45 Range/Units White Blood Count 7.9 4.3-11.0 10^3/uL Red Blood Count 4.08 L 4.35-5.85 10^6/uL Hemoglobin 12.7 L 13.3-17.7 G/DL Hematocrit 38 L 40-54 % Mean Corpuscular Volume 94 80-99 FL Mean Corpuscular Hemoglobin 31 25-34 PG Mean Corpuscular Hemoglobin Concent 33 32-36 G/DL Red Cell Distribution Width 13.0 10.0-14.5 % Platelet Count 171 130-400 10^3/uL Mean Platelet Volume 9.9 7.4-10.4 FL Neutrophils (%) (Auto) 67 42-75 % Lymphocytes (%) (Auto) 20 12-44 % Monocytes (%) (Auto) 9 0-12 % Eosinophils (%) (Auto) 4 0-10 % Basophils (%) (Auto) 1 0-10 % Neutrophils # (Auto) 5.3 1.8-7.8 X 10^3 Lymphocytes # (Auto) 1.6 1.0-4.0 X 10^3 Monocytes # (Auto) 0.7 0.0-1.0 X 10^3 Eosinophils # (Auto) 0.3 0.0-0.3 10^3/uL Basophils # (Auto) 0.0 0.0-0.1 10^3/uL Sodium Level 136 135-145 MMOL/L Potassium Level 3.4 L 3.6-5.0 MMOL/L Chloride Level 100 98-107 MMOL/L Carbon Dioxide Level 24 21-32 MMOL/L Anion Gap 12 5-14 MMOL/L Blood Urea Nitrogen 26 H 7-18 MG/DL Creatinine 1.46 H 0.60-1.30 MG/DL Estimat Glomerular Filtration Rate 45 BUN/Creatinine Ratio 18 Glucose Level 89 70-105 MG/DL Calcium Level 9.2 8.5-10.1 MG/DL Magnesium Level 2.2 1.8-2.4 MG/DL Total Bilirubin 0.6 0.1-1.0 MG/DL Aspartate Amino Transf (AST/SGOT) 12 5-34 U/L Alanine Aminotransferase (ALT/SGPT) < 6 0-55 U/L Alkaline Phosphatase 75 40-136 U/L C-Reactive Protein High Sensitivity 0.05 0.00-0.50 MG/DL Total Protein 7.5 6.4-8.2 GM/DL Albumin 4.1 3.2-4.5 GM/DL Urine Color YELLOW Urine Clarity CLEAR Urine pH 7 5-9 Urine Specific [place] 1.010 L 1.016-1.022 Urine Protein NEGATIVE NEGATIVE Urine Glucose (UA) NEGATIVE NEGATIVE Urine Ketones NEGATIVE NEGATIVE Urine Nitrite NEGATIVE NEGATIVE Urine Bilirubin NEGATIVE NEGATIVE Urine Urobilinogen NORMAL NORMAL MG/DL Urine Leukocyte Esterase 3+ H NEGATIVE Urine RBC (Auto) NEGATIVE NEGATIVE Urine RBC NONE /HPF Urine WBC 10-25 H /HPF Urine Squamous Epithelial Cells NONE /HPF Urine Crystals NONE /LPF Urine Bacteria MODERATE H /HPF Urine Casts NONE /LPF Urine Mucus NEGATIVE /LPF Urine Culture Indicated YES My Orders Orders - LOULOU SMITH MD Cbc With Automated Diff (06/17/17 08:34) Comprehensive Metabolic Panel (06/17/17 08:34) Hs C Reactive Protein (06/17/17 08:34) Magnesium (06/17/17 08:34) Ua Culture If Indicated (06/17/17 08:34) Chest 1 View, Ap/Pa Only (06/17/17 08:34) Urine Culture (06/17/17 10:45) Ceftriaxone Injection (Rocephin Injectio (06/17/17 11:30) Vital Signs/I&O Vital Sign - Last 12Hours 06/17/17 08:36 Temp 97.6 Pulse 76 Resp 18 B/P (MAP) 117/66 Pulse Ox 95 O2 Delivery Room Air Progress Note : Progress Note Seen and evaluated. IV by EMS, labs, chest x-ray and UA ordered. Monitor patient. UA obtained. 115: UA noted to the significant for urinary tract infection. We will initiate first dose of IV antibiotics given his history of hypertension in the mornings but otherwise I think this can be treated outpatient given his current evaluation. Patient and family in full agreement. Patient was allowed to take his home medicines for his Parkinson's disease. After antibiotics, discharged home with return precautions. Patient and family verbalize understanding instructions and agreement with plan. Departure Impression Impression: Primary Impression: Urinary tract infectious disease Qualified Codes: N30.00 - Acute cystitis without hematuria Disposition: 01 HOME, SELF-CARE Condition: Stable Departure-Patient Inst. Decision time for Depature: 11:19 Referrals: VINCENT WHITE DO (PCP/Family) Primary Care Physician Patient Instructions: Urinary Tract Infections in Adults Add. Discharge Instructions: All discharge instructions reviewed with patient and/or family. Voiced understanding. Take medications as directed. Follow-up with your doctor later this week for recheck and further evaluation. Return for worse pain, fever, vomiting, weakness, rhythm problems or other concerns as needed. Scripts Cephalexin (Cephalexin) 500 Mg Tablet 500 MG PO BID, #13 TAB 0 Refills Prov: LOULOU SMITH MD 06/17/17 Copy Copies To 1: VINCENT WHITE TIMOTHY D MD Jun 17, 2017 08:44
[2017-06-17 08:46] LABS: BASOPHILS % (AUTO) 1 % (0-10); EOSINOPHILS # (AUTO) 0.3 10^3/uL (0.0-0.3); EOSINOPHILS % (AUTO) 4 % (0-10); LYMPHOCYTES # (AUTO) 1.6 X 10^3 (1.0-4.0); LYMPHOCYTES % (AUTO) 20 % (12-44); MEAN CORPUSCULAR HEMOGLOBIN 31 PG (25-34); MEAN CORPUSCULAR HGB CONC 33 G/DL (32-36); MEAN CORPUSCULAR VOLUME 94 FL (80-99); MEAN PLATELET VOLUME 9.9 FL (7.4-10.4); MONOCYTES # (AUTO) 0.7 X 10^3 (0.0-1.0); MONOCYTES % (AUTO) 9 % (0-12); NEUTROPHILS # (AUTO) 5.3 X 10^3 (1.8-7.8); NEUTROPHILS % (AUTO) 67 % (42-75); PLATELET COUNT 171 10^3/uL (130-400); RED BLOOD COUNT 4.08 10^6/uL (4.35-5.85); WHITE BLOOD COUNT 7.9 10^3/uL (4.3-11.0)
[2017-06-17 08:57] LABS: ALANINE AMINOTRANSFERASE < 6 U/L (0-55); ALBUMIN 4.1 GM/DL (3.2-4.5); ANION GAP 12 MMOL/L (5-14); ASPARTATE AMINO TRANSFERASE 12 U/L (5-34); BILIRUBIN,TOTAL 0.6 MG/DL (0.1-1.0); BLOOD UREA NITROGEN 26 MG/DL (7-18); BUN/CREATININE RATIO 18; CALCIUM 9.2 MG/DL (8.5-10.1); CARBON DIOXIDE 24 MMOL/L (21-32); CHLORIDE 100 MMOL/L (98-107); CREATININE SERUM 1.46 MG/DL (0.60-1.30); GFR ESTIMATED 45; GLUCOSE 89 MG/DL (70-105); MAGNESIUM 2.2 MG/DL (1.8-2.4); POTASSIUM 3.4 MMOL/L (3.6-5.0); SODIUM 136 MMOL/L (135-145); TOTAL PROTEIN 7.5 GM/DL (6.4-8.2); hs C REACTIVE PROTEIN 0.05 MG/DL (0.00-0.50)
--- NOTE | 2017-06-17 09:00 | Diagnostic Imaging Report ---
EXAMINATION: Portable upright radiograph of the chest. INDICATION: Low blood pressure. FINDINGS: There is a calcified granuloma again seen in the right suprahilar region measuring 7 mm. There is interstitial prominence seen, similar to 04/18/2017, with minimal bibasilar atelectasis or scarring. The heart size is at the upper limits of normal. No effusion or pneumothorax. The mediastinum and kirti appear unremarkable. There is a pacemaker with two cardiac leads seen. IMPRESSION: Minimal bibasilar atelectasis or scarring. Dictated by: Dictated on workstation # [id number]
[2017-06-17 10:53] LABS: BILIRUBIN,URINE NEGATIVE (NEGATIVE); KETONES,URINE NEGATIVE (NEGATIVE); LEUKOCYTE ESTERASE ,URINE 3+ (NEGATIVE); NITRITE,URINE NEGATIVE (NEGATIVE); PH,URINE 7 (5-9); PROTEIN,URINE NEGATIVE (NEGATIVE); UROBILINOGEN,URINE NORMAL (NORMAL)
[2017-06-17] MEDS ORDERED: CEPH500T PO (11:20)
[2017-06-17] MEDS ORDERED: cefTRIAXone INJECTION 1,000 MG in NS (IVPB) 50 ML IV ONE (11:30)
[2017-06-17 11:49] VITALS: BP 134/76
== END 2017-06-17 11:48 | disposition home or self-care (01) ==
LOC: EDUNIT# 08:15 → ER 08:16
DX: N39.0 Urinary tract infection, site not specified (principal); G20 Parkinson's disease; Z90.49 Acquired absence of other specified parts of digestive tract; Z95.0 Presence of cardiac pacemaker; Z82.49 Family history of ischemic heart disease and other diseases of the circulatory system
CPT/HCPCS: 36415; 71010; 80053; 81000; 83735; 85025; 86141; 87088; 96365; 99283